=== PATIENT | female | born 1940 | race Caucasian/White ===

== ENCOUNTER 2019-10-24 16:27 | Inpatient (IN) | payer BC, MEDICARE, OTHER ==
[~2019-10-24] VITALS: Ht 162.6 cm; Wt 37.2 kg
[2019-10-24 15:40] VITALS: BP 147/78
[~2019-10-24 16:27] MED LIST: ALPR0.254 PO; ASPI-630 PO; BISA10SU4 PR; CALC200T23 PO; DILT360C PO; ESCITALOPRAM OXA5 M1 PO; FLUT1DIS IH; IPRA3AMP29 NEB; PRED1TAB3 PO; PRED50TA PO; PROC25SU21 PR
[2019-10-24] MEDS ORDERED: BISACODYL 10 MG SUPP.RECT. PR PRN (16:45)
[2019-10-24] MEDS ORDERED: PROMETHAZINE 25 MG SUPP.RECT. PR PRN (16:45)
[2019-10-24] MEDS ORDERED: MORPHINE SULFATE 2 MG/ML VIAL. IV PRN (16:45)
[2019-10-24] MEDS ORDERED: LORazepam 1 MG TABLET PO PRN (16:45)
[2019-10-24] MEDS ORDERED: ACETAMINOPHEN 650 MG SUPP.RECT. PR PRN (16:45)
[2019-10-24] MEDS: MORPHINE SULFATE 2 MG/ML VIAL. IV PRN ×2 (17:30→22:14)
[2019-10-24] MEDS ORDERED: SCOPOLAMINE 1.5MG PATCH. TD SCH (18:00)
[2019-10-24 19:00] VITALS: BP 142/76
[2019-10-25 07:00] VITALS: BP 157/102
[2019-10-25] MEDS: MORPHINE SULFATE 2 MG/ML VIAL. IV PRN (08:38)
[2019-10-25] MEDS: MORPHINE SULFATE 20 MG/ML CONC SOLUTION. SL PRN ×3 (08:47→15:46)
[2019-10-25] MEDS: LORazepam INTENSOL 2 MG/ML ORAL.CONC SL PRN ×2 (11:23→14:22)
--- NOTE | 2019-10-25 14:10 | SNU/HH DC ---
DISCHARGE ORDERS DISCHARGE INFORMATION: CONDITION ON DISCHARGE: Stable CODE STATUS: Code Status: Full [facility]: SNF STAY <30 DAYS: No HOSPICE: HOSPICE: Yes HOSPICE EVAL & TREAT: Yes LTAC: ADMIT TO LTAC: No POST DISCHARGE ORDERS: ACTIVITY ORDERS: Activity as tolerated, Bedrest today DIET AFTER DISCHARGE: Regular CHECKS AFTER DISCHARGE: CHECKS AFTER DISCHARGE: Check blood press - daily TREATMENT/EQUIPMENT ORDERS: RESPIRATORY EQUIPMENT NEEDED: Oxygen, Nebulizer, BiPAP Speech Language Pathology For: Swallow Cognition DISCHARGE MEDICATIONS: Home Meds Active Scripts Ipratropium/Albuterol Sulfate (DUONEB 0.5-3(2.5) MG/3 ML) 3 Ml Ampul.neb, 3 ML NEB QID for COPD for 30 Days, #120 EACH Prov:MODESTO CHAPMAN MD 10/24/19 Prednisone (PREDNISONE) 50 Mg Tablet, 1 TAB PO DAILY for COPD for 10 Days, #10 TAB Prov:MODESTO CHAPMAN MD 10/24/19 Prochlorperazine Maleate (COMPAZINE) 25 Mg Supp.rect, 25 MG WA PRN Q12HR PRN for NAUSEA/VOMITING for 14 Days, #14 SUPP.RECT Prov:MODESTO CHAPMAN MD 10/24/19 Bisacodyl (BISACODYL) 10 Mg Supp.rect, 10 MG WA PRN DAILY PRN for CONSTIPATION f or 30 Days, #30 SUPP.RECT Prov:MODESTO CHAPMAN MD 10/24/19 Calcium Carbonate (CALCIUM CARBONATE) 200 Mg Tab.chew, 500 MG PO PRN Q3HRS PRN for HEARTBURN / GAS, 1ST CHOICE for 30 Days, #60 TAB.CHEW Prov:MODESTO CHAPMAN MD 10/24/19 Aspirin (ASPIRIN) 81 Mg Tab.chew, 81 MG PO DAILYWBKFT for HEART HEALTH for 30 Days, #30 TAB.CHEW Prov:MODESTO CHAPMAN MD 10/24/19 Reported Medications Escitalopram Oxalate (Escitalopram Oxalate) 5 Mg Tablet, 10 MG PO DAILY for ., TAB 10/19/19 Alprazolam (ALPRAZOLAM) 0.25 Mg Tablet, 1 TAB PO TID for ., #90 TAB 10/19/19 Discontinued Reported Medications Prednisone (PREDNISONE) 1 Mg Tablet, 4 TAB PO DAILY for ., #360 TAB 3 Refills 1/3/20 Diltiazem Hcl (CARDIZEM CD) 360 Mg Cap.er.24h, 1 CAP PO DAILY for afib, #30 CAP 5 Refills 1/3/20 Fluticasone/Salmeterol (ADVAIR 100-50 DISKUS) 1 Each Disk.w.dev, 1 PUFF IH BID for asthma, #1 INHALER 5 Refills /3/20 FRANCINE GARCIA III DO Oct 25, 2019 14:10
--- NOTE | 2019-10-25 15:26 | NUR ---
Pt discharging home with [facility] via [facility] at 1600. RN and family notified.
--- NOTE | 2019-10-25 16:51 | NUR ---
Discharge Note: PT DISCHARGED HOME WITH [facility]. PT LEFT FACILITY VIA [facility] WITH DAUGHTER APPROX. 1615. PT COMFORTABLE UPON DISCHARGE. PT PIV REMOVED FROM R FA WITHOUT COMPLICATIONS, BANDAGE APPLIED. [facility] INFORMED OF DISCHARGE MEDICATIONS, DISCHARGE INSTRUCTIONS, AND FOLLOW-UP CARE. NO CONCERNS VOICED AT THIS TIME. PT DAUGHTER LEFT WITH ALL PERSONAL BELONGINGS. [facility] Discharge instructions and discharge home medications reviewed with Patient and a copy given. All questions have been answered and understanding verbalized.
--- NOTE | 2019-10-31 19:06 | DS ---
DATE OF DISCHARGE: 10/25/2019 ADMISSION DIAGNOSES: Respiratory failure, chronic obstructive pulmonary disease and hypoxia. 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 HOSPITAL COURSE: The patient is a pleasant elderly female who had end-stage COPD, presented with respiratory failure on 10/24. She had a Madina coma scale of 10. EMS, when they arrived, they noticed that her sat was 70% at home. She was placed on BiPAP. We admitted the patient to the ICU, gave her breathing treatments and oxygen and consulted Pulmonary. The family decided on comfort care only. She was made DNR, we arranged hospice with [facility]. DISPOSITION: [facility]ospice [facility]. ACTIVITY: Bed rest. DIET: N.p.o. MEDICATIONS: Please see the MRAD. TOTAL TIME: 32 minutes. FRANCINE GARCIA DO DR: [email or web address]/marilee JOB#: [id number] / [id number]
== END 2019-10-25 16:15 | disposition hospice, home (50) | DRG 189 ==
LOC: 5 SOUTH 16:27
PROVIDERS: ADMIT Family Medicine; ATTEND Family Medicine
PROC: 5A09357 Assistance with Respiratory Ventilation, Less than 24 Consecutive Hours, Continuous Positive Airway Pressure (ICD-10-PCS; principal; 2019-10-24)
DX: J96.01 Acute respiratory failure with hypoxia (principal); E43 Unspecified severe protein-calorie malnutrition; J44.1 Chronic obstructive pulmonary disease with (acute) exacerbation; J96.02 Acute respiratory failure with hypercapnia; Z51.5 Encounter for palliative care; R40.2420 Glasgow coma scale score 9-12, unspecified time; Z66 Do not resuscitate; J44.9 Chronic obstructive pulmonary disease, unspecified; Z87.891 Personal history of nicotine dependence; Z82.49 Family history of ischemic heart disease and other diseases of the circulatory system; E87.5 Hyperkalemia
CPT/HCPCS: 94640; 94660; J2270; G0378